=== PATIENT | female | born 1990 | race Caucasian/White ===

== ENCOUNTER 2021-02-16 19:11 | Emergency (ER) | payer OTHER, SELFPAY ==
[2021-02-16 19:15] VITALS: BP 132/73; PULSE 88; RESP 24; TEMP 36.4; O2SAT 100; BMI 34.0
== END 2021-02-16 21:00 | disposition left against medical advice (07) ==
PROVIDERS: Emergency Provider Emergency Medicine; PCP Internal Medicine
DX: R22.0 Localized swelling, mass and lump, head (principal); F41.9 Anxiety disorder, unspecified; T20.06XA Burn of unspecified degree of forehead and cheek, initial encounter; T26.00XA Burn of unspecified eyelid and periocular area, initial encounter; T20.03XA Burn of unspecified degree of chin, initial encounter; W40.1XXA Explosion of explosive gases, initial encounter; Y93.G2 Activity, grilling and smoking food; Y92.017 Garden or yard in single-family (private) house as the place of occurrence of the external cause; Y99.9 Unspecified external cause status
CPT/HCPCS: 99281; 99282

== ENCOUNTER 2025-03-09 13:54 | Outpatient (AMB) | payer MEDICAID, SELFPAY ==
[2025-03-09 13:57] VITALS: BP 110/72; BMI 43.5
--- NOTE | 2025-03-09 13:57 | A.OFFVIS_ITS ---
Vital Signs 03/09/25 13:57 Height 5 ft 1 in Weight 230 lb BMI 43.5 BP 110/72 Intake Visit Reasons: menorrhagia/dysmenorrhea/External/DO NOT RS Allergies pecan nut [PECAN] Allergy (Severe, Unverified 02/16/21 19:20) ANAPHYLAXIS clindamycin [CLINDAMYCIN] Allergy (Mild, Unverified 02/16/21 19:20) HIVES Penicillins [PENICILLINS] Allergy (Mild, Unverified 02/16/21 19:20) HIVES Abilify Allergy (Unknown, Uncoded 02/16/21 19:20) Hives Benzyl Alcohol Allergy (Unknown, Uncoded 02/16/21 19:20) rash Clindamycin Allergy (Unknown, Uncoded 02/16/21 19:20) hives PCN Allergy (Unknown, Uncoded 02/16/21 19:20) hives Wellbutrin Allergy (Unknown, Uncoded 02/16/21 19:20) dizziness Zoloft Allergy (Unknown, Uncoded 02/16/21 19:20) dizziness Is last menstrual period known: Yes Last menstrual period: 02/27/25 HPI Comments Details: The patient is presenting c/o regular heavy and prolonged menstrual cycles associated with passage of blood clots and abdominal cramping, no other associated symptoms. Last co testing was many years ago [facility] Medical History (Updated 03/09/25 @ 14:29 by Bobby Kim MD) Asthma Surgical History (Updated 03/09/25 @ 14:29 by Bobby Kim MD) Hx of tubal ligation Hx of laparoscopy Hx of breast augmentation Hx of abdominoplasty Hx of section Family History Father HTN (hypertension) Diabetes Mother Diabetes HTN (hypertension) Family/Other Lupus (systemic lupus erythematosus) Social History Household Members: Spouse and Children Housing: House Alcohol intake: current Alcohol intake frequency: holidays/special occasions only Patient Tobacco Use Status: Never used Tobacco Substance Use Type: Marijuana Current occupational status: employed Current occupation: [employer] Sexual orientation: Straight/Heterosexual Gender identity: Female Female Reproductive History Menstrual Age of Menarche: 12 Duration of menses: 8-10 days Date of last menstrual period: 02/27/25 Total pregnancies: 9 Full term: 6 Number of Living Children: 6 Ab induced: 2 Ab spontaneous: 1 Review of Systems Const All systems reviewed & are unremarkable except as noted in HPI and below Physical Exam Vital Signs: Last Vital Signs BP 110/72 03/09/25 13:57 BMI result Body Mass Index 43.5 General: Yes no CVA tenderness External Female Exam: normal external appearance and normal appearance of the urethra Speculum Exam - Vagina: normal appearance of the vagina, normal palpation, no lesions and no masses Speculum Exam - Cervix: normal appearance of the cervix, normal palpation, no lesions, no masses and nontender Bimanual exam- vagina & uterus: normal bimanual exam, normal palpation, uterine size normal, normal palpation, uterine shape normal, No Cervical tenderness present and non-tender Bimanual Exam- Adnexa, other: normal adnexae Back/Spine/Pelvis Back: no CVA tenderness Assessment & Plan Assessment & Plan (1) Abnormal uterine bleeding (AUB): Code(s): N93.9 - Abnormal uterine and vaginal bleeding, unspecified Category: Medical Plan: Co testing done, GC and chlamydia taken CBC, TSH, HCG, and pelvic ultrasound ordered. Discussed with the patient the different causes of abnormal bleeding including thyroid disorders, uterine and ovarian pathology, endometrial hyperplasia, carcinoma and other potential causes. Discussed with the patient the work up including CBC (to r/o anemia), TSH, pelvic Ultrasound, endometrial sampling to r/o endometrial pathology. Recommended to the patient that the next step is an endometrial sampling via hysteroscopy D&C possible polypectomy versus endometrial biopsy to r/o endometrial pathology including hyperplasia or cancer. All the pros and cons risks and benefits of each approach were discussed with the patient, endometrial biopsy being less invasive, office procedure with less sensitivity and inability diagnose a polyp and removal versus hysteroscopy done under anesthesia more invasive more sensitive to endometrial cancer and possibility of diagnosing and endometrial polyp with the possibility of polypectomy. All questions were answered pt verbalized understanding and decided to proceed with hysteroscopy D&C possible polypectomy/myomectomy. Discussed with the patient the procedure , all benefits and risks including but not limited to inability to complete the procedure , insufficient endometrial tissue for a complete evaluation of the endometrial cavity , bleeding, infection, possible need for blood transfusion with all its risk ( HIV,syphilis, Hepatitis, anaphylaxis shock, others..), injury to bladder, rectum, possible need for laparoscopy/laparotomy or hysterectomy. The patient verbalized understanding and signed the consent. Instructions given the patient to stay NPO after midnight the day prior to the procedure and to take only the specific medication (s) discussed the morning of the surgical procedure and to schedule a 2 week postoperative appointment Orders: Orders Complete Blood Count no Diff Today N93.9 - Abnormal uterine and vaginal bleeding, unspecified TSH reflex Free T4 Today N93.9 - Abnormal uterine and vaginal bleeding, unspecified HCG Quantitative Today N93.9 - Abnormal uterine and vaginal bleeding, unspecified US pelvic and transvaginal Today N93.9 - Abnormal uterine and vaginal bleeding, unspecified Coding Level of Care Code New Pt Level 3 (85436) Diagnoses Abnormal uterine bleeding (AUB) N93.9
== END 2025-03-09 15:10 | disposition home or self-care (01) ==
LOC: HO.HWS 13:54
PROVIDERS: PCP Internal Medicine; Visit Provider Obstetrics & Gynecology
DX: N93.9 Abnormal uterine and vaginal bleeding, unspecified (principal)
CPT/HCPCS: 99203

== ENCOUNTER 2025-03-09 13:54 | Outpatient (REF) | payer MEDICAID, SELFPAY ==
[2025-03-09 15:49] LABS: Hematocrit 36.8 % (37.0-47.0); Hemoglobin 12.3 g/dl (12.0-16.0); Mean Corpuscular HGB Conc 33.4 g/dl (31.0-35.0); Mean Corpuscular Hemoglobin 27.8 pg (27.0-33.0); Mean Corpuscular Volume 83.1 fL (80.0-98.0); Mean Platelet Volume 9.5 fL (9.4-12.3); Platelet Count 366 X10*3/uL (160-400); Red Blood Count 4.43 X10*6/uL (4.20-5.50); Red Cell Distribution Width 13.2 % (11.0-16.0); White Blood Count 8.5 X10*3/uL (4.8-10.8)
[2025-03-09 16:20] LABS: HCG Quantitative < 2 mIU/mL; TSH reflex Free T4 0.66 uIU/mL (0.32-4.0)
[2025-03-09 18:15] LABS: CT PCR NOT DETECTED (Not Detect.); NG PCR NOT DETECTED (Not Detect.)
[2025-03-15 09:08] LABS: HPV Genotype 16 Negative (Negative); HPV Genotype 18 Negative (Negative); HPV High Risk Negative (Negative)
== END 2025-03-09 13:55 | disposition home or self-care (01) ==
LOC: HO.LAB 13:54
PROVIDERS: PCP Internal Medicine; Visit Provider Obstetrics & Gynecology
DX: N93.9 Abnormal uterine and vaginal bleeding, unspecified (principal); Z12.4 Encounter for screening for malignant neoplasm of cervix; Z11.51 Encounter for screening for human papillomavirus (HPV)
CPT/HCPCS: 36415; 84443; 84702; 85027; 87491; 87591; 87626; 88175; 99202

== ENCOUNTER 2025-03-24 06:14 | Day surgery (SDC) | payer MEDICAID, SELFPAY ==
[2025-03-22 07:29] VITALS: BMI 43.5
--- NOTE | 2025-03-22 13:04 | HO.ANESPROP2 ---
Documented by User: Carolee Angulo NP 03/22/25 13:04 HPI - Anesthesia Eval Consult details Narrative: 34yo F for D&C Hysteroscopy possible myomectomy / polypectomy PMFSH Active Problems Active Problems: All Active Problems Abnormal uterine bleeding (AUB) (Acute) Past Medical History Medical History Asthma Family History Family History Father HTN (hypertension) Diabetes Mother Diabetes HTN (hypertension) Family/Other Lupus (systemic lupus erythematosus) Surgical History Surgical History Hx of tubal ligation Hx of laparoscopy Hx of breast augmentation Hx of abdominoplasty Hx of section Social History Social History Household Members: Spouse and Children Housing: House Alcohol intake: current Alcohol intake frequency: holidays/special occasions only Patient Tobacco Use Status: Never used Tobacco Second Hand Smoke Exposure: No Use of substances other than those prescribed or required for medical reasons: Yes Substance Use Type: Marijuana Substance Use Frequency: Daily Have you been hit, kicked, punched, or otherwise hurt by someone within the past year? If so, by whom?: No Are you DNR?: No Advance Directives: No Advance Directives Information Provided: No Advance Directives on File: No Patient : No : No Poor oral hygiene: No Current occupational status: employed Current occupation: [employer] Sexual orientation: Straight/Heterosexual Gender identity: Female Meds Allergies Allergy/AdvReac Type Severity Reaction Status Date / Time pecan nut (PECAN) Allergy Severe ANAPHYLAXIS Verified 03/24/25 07:13 clindamycin (CLINDAMYCIN) Allergy Mild HIVES Verified 03/24/25 07:13 Penicillins (PENICILLINS) Allergy Mild HIVES Verified 03/24/25 07:13 Abilify Allergy Unknown Hives Uncoded 02/16/21 19:20 Benzyl Alcohol Allergy Unknown rash Uncoded 02/16/21 19:20 Clindamycin Allergy Unknown hives Uncoded 02/16/21 19:20 PCN Allergy Unknown hives Uncoded 02/16/21 19:20 Wellbutrin Allergy Unknown dizziness Uncoded 02/16/21 19:20 Zoloft Allergy Unknown dizziness Uncoded 02/16/21 19:20 Home Medications ?Medication ?Instructions ?Recorded ?Confirmed ?Last Taken ?Type albuterol sulfate 90 mcg/actuation 2 puff inhalation QID PRN asthma 03/09/25 Unknown History aerosol inhaler (Ventolin HFA) fluticasone furoate 100 1 inh inhalation DAILY 03/09/25 Unknown History mcg/actuation blister powder for inhalation (Arnuity Ellipta) montelukast 10 mg tablet 10 mg PO BEDTIME 03/09/25 Unknown History multivitamin with folic acid 400 1 tab PO DAILY 03/09/25 Unknown History mcg tablet (Daily-Lucille (with folic acid)) Exam Height,Weight and Vital Signs: Height 5 ft 1 in Weight 104.326 kg Assessment and Plan Assessment Anesthesia Assessment: Chart Reviewed Documented by User: Kelsi Ratliff MD 03/24/25 07:31 [facility] Past Medical History Medical History Asthma Family History Family History Father HTN (hypertension) Diabetes Mother Diabetes HTN (hypertension) Family/Other Lupus (systemic lupus erythematosus) Family history of problems with anesthesia: No Surgical History Surgical History Hx of tubal ligation Hx of laparoscopy Hx of breast augmentation Hx of abdominoplasty Hx of section History of Problems with Anesthesia: No Social History Social History Household Members: Spouse and Children Housing: House Alcohol intake: current Alcohol intake frequency: holidays/special occasions only Patient Tobacco Use Status: Never used Tobacco Second Hand Smoke Exposure: No Use of substances other than those prescribed or required for medical reasons: Yes Substance Use Type: Marijuana Substance Use Frequency: Daily Have you been hit, kicked, punched, or otherwise hurt by someone within the past year? If so, by whom?: No Are you DNR?: No Advance Directives: No Advance Directives Information Provided: No Advance Directives on File: No Patient : No : No Poor oral hygiene: No Current occupational status: employed Current occupation: [employer] Sexual orientation: Straight/Heterosexual Gender identity: Female Meds Allergies Allergy/AdvReac Type Severity Reaction Status Date / Time pecan nut (PECAN) Allergy Severe ANAPHYLAXIS Verified 03/24/25 07:13 clindamycin (CLINDAMYCIN) Allergy Mild HIVES Verified 03/24/25 07:13 Penicillins (PENICILLINS) Allergy Mild HIVES Verified 03/24/25 07:13 Abilify Allergy Unknown Hives Uncoded 02/16/21 19:20 Benzyl Alcohol Allergy Unknown rash Uncoded 02/16/21 19:20 Clindamycin Allergy Unknown hives Uncoded 02/16/21 19:20 PCN Allergy Unknown hives Uncoded 02/16/21 19:20 Wellbutrin Allergy Unknown dizziness Uncoded 02/16/21 19:20 Zoloft Allergy Unknown dizziness Uncoded 02/16/21 19:20 Home Medications ?Medication ?Instructions ?Recorded ?Confirmed ?Last Taken ?Type albuterol sulfate 90 mcg/actuation 2 puff inhalation QID PRN asthma 03/09/25 Unknown History aerosol inhaler (Ventolin HFA) fluticasone furoate 100 1 inh inhalation DAILY 03/09/25 Unknown History mcg/actuation blister powder for inhalation (Arnuity Ellipta) montelukast 10 mg tablet 10 mg PO BEDTIME 03/09/25 Unknown History multivitamin with folic acid 400 1 tab PO DAILY 03/09/25 Unknown History mcg tablet (Daily-Lucille (with folic acid)) Exam Airway Mallampati Class: II TM Dist: >3cm Neck ROM: Full Heart: rrr Lungs: cta Assessment and Plan Assessment Anesthesia Assessment: Anesthesia Plan Discussed Final Anesthetic Review Family History of Problems with Anesthesia: No History of Problems with Anesthesia: No NPO: Yes ASA Class: II Final Preanesthetic Review: No Changes in Pt Med Stat, Meds/Allgs Chart Reviewed, Consent Obtained/Reviewed and Anes Risks/Benef Reviewed Patient Risk: Low Procedure Risk: Low Anesthetic Plan Anesthetic Plan: GA (multiple piercings , pt asked to remove all on toungue and around mouth) Disposition: Standard PACU
[2025-03-24] VITALS (7 sets, daily range): BP systolic 121–145; BP diastolic 77–86; PULSE 72–91; RESP 12–16; TEMP 36.1–36.7; O2SAT 96–100
[2025-03-24 06:42] LABS: UPreg QC Valid YES; Urine Pregnancy NEGATIVE (NEGATIVE)
[2025-03-24] MEDS: Lactated Ringers 1,000 ML 100 ML IVCONT (07:13)
--- NOTE | 2025-03-24 07:28 | MHC.SHP ---
Pre-Procedural Eval Section A - 24 Hr Update-Section A only Date of Service: 03/24/25 The patient is an INPATIENT: No Changes since office visit: No Cold of Flu in the past 2 weeks, No New Medical Problems, No Changes in Medication and No Patient answered all questions The patient has been examined within 24 hours of the surgical procedure. The History & Physical has been completed within 30 days and I have reviewed it.: Yes Section B - Complete if H&P > 30 days Chief Complaint: Abnormal uterine and vaginal bleeding, unspecified Allergies: Allergies Allergy/AdvReac Type Severity Reaction Status Date / Time pecan nut (PECAN) Allergy Severe ANAPHYLAXIS Verified 03/24/25 07:13 clindamycin (CLINDAMYCIN) Allergy Mild HIVES Verified 03/24/25 07:13 Penicillins (PENICILLINS) Allergy Mild HIVES Verified 03/24/25 07:13 Abilify Allergy Unknown Hives Uncoded 02/16/21 19:20 Benzyl Alcohol Allergy Unknown rash Uncoded 02/16/21 19:20 Clindamycin Allergy Unknown hives Uncoded 02/16/21 19:20 PCN Allergy Unknown hives Uncoded 02/16/21 19:20 Wellbutrin Allergy Unknown dizziness Uncoded 02/16/21 19:20 Zoloft Allergy Unknown dizziness Uncoded 02/16/21 19:20 Plan Diagnosis/Plan: Unchanged I have reviewed the history and physical and performed a pertinent physical examination on my patient. No changes have occurred unless specified. Time Spent With Patient Time: Total time managing care of this patient today ____ minutes.
--- NOTE | 2025-03-24 08:04 | P.BOP_ITS ---
Brief Operative Note Date of Service: 03/24/25 Pre-op diagnosis: Abnormal uterine bleeding Post-op diagnosis: same (Normal endometrial cavity) Procedure: Hysteroscopy D&C Surgeon: Bobby Kim MD Anesthesia: GLMA Was an Conservation Worker used for this Procedure?: No Estimated blood loss (mL): 0 Pathology: other (Endometrial Scrapping. ) Condition: stable Disposition: PACU
--- NOTE | 2025-03-24 08:05 | W.PM.OPN ---
Operative Note Operative Note Date of Service: 03/24/25 Narrative: Preop Diagnosis: Abnormal uterine bleeding Operation: Diagnostic Hysteroscopy, Dilataion & Curettage Post Op Diagnosis: Normal endometrial cavity QBL: Minimal Anesthesia: GLMA Surgeon: Bobby Kim MD Senior Publications Specialist: None Complication: None Pathology: Endometrial Scrapings Procedure: The patient was put in the dorsal lithotomy position, scrubbed, and draped in the usual manner. A sterile speculum was inserted in the patient's vagina. The anterior lip of the cervix was grasped with a single tooth tenaculum. The cervix was dilated up to 5 mm, then the scope was inserted in the patient's uterus. Inspection revealed normal endometrial cavity. The scope was then taken out from the uterine cavity, sharp curettings was carried on with minimal to moderate amount of tissues retrieved. At the end of the procedure, all instruments were taken out of the patient uterine and vaginal cavity. The single tooth tenaculum was removed and homeostasis was assured using pressure,. The patient tolerated the procedure well and was transferred to the PACU in a stable condition.
== END 2025-03-24 09:57 | disposition home or self-care (01) ==
PROVIDERS: PCP Internal Medicine; Visit Provider Obstetrics & Gynecology
PROC: 0UDB8ZZ Extraction of Endometrium, Via Natural or Artificial Opening Endoscopic (ICD-10-PCS; CPT 58558; principal; 2025-03-24 07:30)
DX: N93.9 Abnormal uterine and vaginal bleeding, unspecified (principal); N85.01 Benign endometrial hyperplasia; J45.909 Unspecified asthma, uncomplicated; Z79.51 Long term (current) use of inhaled steroids; Z79.899 Other long term (current) drug therapy; Z88.0 Allergy status to penicillin; Z88.1 Allergy status to other antibiotic agents; Z88.8 Allergy status to other drugs, medicaments and biological substances; Z91.018 Allergy to other foods; Z98.51 Tubal ligation status; Z98.890 Other specified postprocedural states
CPT/HCPCS: 58558; 81025; 88305; J1100; J1885; J2003; J2250; J2405; J2704; J3010

== ENCOUNTER → 2025-03-24 06:14 | Outpatient (BNV) | payer MEDICAID, SELFPAY | PROVIDERS: PCP Internal Medicine; Visit Provider Obstetrics & Gynecology | DX: N93.9 Abnormal uterine and vaginal bleeding, unspecified (principal) | CPT/HCPCS: 58558 ==

== ENCOUNTER 2025-04-06 13:02 | Outpatient (AMB) | payer MEDICAID, SELFPAY ==
--- NOTE | 2025-04-06 13:09 | MHC.OFFVIS ---
Intake Visit Reasons: post op Accompanied by: Self / Same As Patient Allergies pecan nut (PECAN) Allergy (Severe, Verified 04/06/25 13:09) ANAPHYLAXIS clindamycin (CLINDAMYCIN) Allergy (Mild, Verified 04/06/25 13:09) HIVES Penicillins (PENICILLINS) Allergy (Mild, Verified 04/06/25 13:09) HIVES Abilify Allergy (Unknown, Uncoded 02/16/21 19:20) Hives Benzyl Alcohol Allergy (Unknown, Uncoded 02/16/21 19:20) rash Clindamycin Allergy (Unknown, Uncoded 02/16/21 19:20) hives PCN Allergy (Unknown, Uncoded 02/16/21 19:20) hives Wellbutrin Allergy (Unknown, Uncoded 02/16/21 19:20) dizziness Zoloft Allergy (Unknown, Uncoded 02/16/21 19:20) dizziness HPI Comments Details: The patient is presenting post hysteroscopy D&C no complaints minimal vaginal bleeding no feverishness chills or abdominal pain. The pathology showed the following: Endometrium, curettage: Benign late secretory endometrium (day 24-25), and benign endocervical glandular and squamous epithelium; no atypia or carcinoma The following workup was done.: H&H= 12.3/36.8 TSH, hCG, GC and chlamydia were negative. Co testing was done was negative. Pelvic ultrasound is scheduled in a week [facility] Medical History Asthma Surgical History Hx of tubal ligation Hx of laparoscopy Hx of breast augmentation Hx of abdominoplasty Hx of section Family History Father HTN (hypertension) Diabetes Mother Diabetes HTN (hypertension) Family/Other Lupus (systemic lupus erythematosus) Social History Household Members: Spouse and Children Housing: House Alcohol intake: current Alcohol intake frequency: holidays/special occasions only Comment: cramping pain Patient Tobacco Use Status: Never used Tobacco Second Hand Smoke Exposure: No Substance Use Type: Marijuana Current occupational status: employed Current occupation: [employer] Sexual orientation: Straight/Heterosexual Gender identity: Female Female Reproductive History Menstrual Age of Menarche: 12 Review of Systems Const All systems reviewed & are unremarkable except as noted in HPI and below Reports as per HPI and Reports no additional complaints GI Reports no additional complaints Reports no additional complaints Assessment & Plan Assessment & Plan (1) Abnormal uterine bleeding (AUB): Code(s): N93.9 - Abnormal uterine and vaginal bleeding, unspecified Category: Medical Plan: Discussed with the patient the results the workup, ultrasound is scheduled within 2 weeks. Instructions given the patient to schedule ultrasound follow-up appointment will check the results and discuss different options of treatment. All questions answered, the patient verbalized understanding Coding Level of Care Code Est Pt Level 3 (41983) Diagnoses Abnormal uterine bleeding (AUB) N93.9
== END 2025-04-06 13:58 | disposition home or self-care (01) ==
LOC: HO.HWS 13:02
PROVIDERS: PCP Internal Medicine; Visit Provider Obstetrics & Gynecology
DX: N93.9 Abnormal uterine and vaginal bleeding, unspecified (principal)
CPT/HCPCS: 99213

== ENCOUNTER → 2025-04-06 13:02 | Outpatient (BNVA) | payer MEDICAID, SELFPAY | PROVIDERS: PCP Internal Medicine; Visit Provider Obstetrics & Gynecology | DX: N93.9 Abnormal uterine and vaginal bleeding, unspecified (principal) | CPT/HCPCS: 99212 ==

== ENCOUNTER 2025-04-12 16:28 | Outpatient (REF) | payer MEDICAID, SELFPAY ==
--- NOTE | ~2025-04-12 | US_ITS ---
EXAMINATION: US PELVIS CLINICAL INFORMATION: N93.9 - Abnormal uterine and vaginal bleeding, prior x6, tubal ligation, hysteroscopy with D&C COMPARISON: None available. TECHNIQUE: Ultrasound of the pelvis is performed using both transabdominal and transvaginal transducers along with Doppler. Transvaginal imaging is performed due to inadequate visualization transabdominally. FINDINGS: Uterus: The uterus measures 12 x 5 x 7 cm. The double wall endometrial thickness is 9 mm. The uterus is smooth in contour and has normal myometrial echogenicity. No visible fibroid. Adnexa: Both ovaries are visualized. There is normal color flow to the adnexa. There is no ovarian torsion. There is no pelvic ascites or fluid collection. Right ovary measures 3.7 x 2.0 x 3.4 cm. Left ovary measures 3.1 x 2.0 x 2.4 cm. US/US pelvic and transvaginal IMPRESSION: Unremarkable pelvic ultrasound. Electronically signed by: Matty Telles MD 04/12/2025 05:34 PM EDT
== END 2025-04-12 16:29 | disposition home or self-care (01) ==
LOC: HO.US 16:28
PROVIDERS: PCP Internal Medicine; Visit Provider Obstetrics & Gynecology
DX: N93.9 Abnormal uterine and vaginal bleeding, unspecified (principal)
CPT/HCPCS: 76830; 76856

== ENCOUNTER → 2025-04-12 16:30 | Outpatient (BNV) | payer MEDICAID, SELFPAY | PROVIDERS: PCP Internal Medicine; Visit Provider Radiology Diagnostic Radiology | DX: N93.9 Abnormal uterine and vaginal bleeding, unspecified (principal) | CPT/HCPCS: 76830; 76856 ==